=== PATIENT | female | born 1980 | race Caucasian/White ===

== ENCOUNTER → 2016-05-21 | Outpatient (CLI) | payer BC ==
--- NOTE | 2016-05-21 15:13 | REP ---
REASON: Low back pain. PRIORS: None. FINDINGS: Five views of the lumbosacral spine show no acute fracture, dislocation or subluxation. The intervertebral disc spaces are symmetric and well maintained. There is no spondylolisthesis. The pedicles are intact bilaterally and there is no destructive osseous lesions. IMPRESSION: Unremarkable lumbosacral spine series. Signed by Ronnie De Leon DO 05/21/2016 03:18 P
== END ==
LOC: M WUC 09:29
PROVIDERS: ATTEND Physician Assistant
DX: M54.5 Low back pain (principal)

== ENCOUNTER → 2018-02-05 | Outpatient (CLI) | payer BC ==
[2018-02-05 19:34] LABS: BASO # 0.1 10^3/uL (0.0-0.2); BASO % 0.6 % (0.0-1.0); EOS # 0.1 10^3/uL (0.0-0.50); EOS % 1.5 % (0.0-3.0); HEMATOCRIT 38.5 % (36.0-47.0); HEMOGLOBIN 13.5 g/dl (12.0-15.5); IMMATURE GRANULOCYTE % 0.1 % (0-3.0); LYMPH # 2.4 10^3/uL (1.5-4.5); LYMPH % 30.3 % (24.0-44.0); MEAN CORPUSCULAR HEMOGLOBIN 29.7 pg (27.0-33.0); MEAN CORPUSCULAR HGB CONC 35.1 g/dl (32.0-36.5); MEAN CORPUSCULAR VOLUME 84.8 fl (80.0-96.0); MONO # 0.5 10^3/uL (0.0-0.8); MONO % 6.7 % (0.0-5.0); NEUTROPHILS # 4.8 10^3/uL (1.8-7.7); NEUTROPHILS % 60.8 % (36.0-66.0); PLATELET COUNT, AUTOMATED 236 10^3/uL (150-450); RED BLOOD COUNT 4.54 10^6/uL (4.00-5.40); RED CELL DISTRIBUTION WIDTH 12.1 % (11.5-14.5); WHITE BLOOD COUNT 7.9 10^3/uL (4.0-10.0)
[2018-02-05 19:41] LABS: FREE T4 0.86 NG/DL (0.76-1.46)
[2018-02-05 19:44] LABS: PROLACTIN 8.9 NG/ML
== END ==
LOC: M WUC 16:06
DX: N92.0 Excessive and frequent menstruation with regular cycle (principal)
CPT/HCPCS: 84146

== ENCOUNTER 2018-04-25 07:30 | Day surgery (SDC) | payer BC ==
[~2018-04-25] VITALS: Ht 165.1 cm; Wt 91.2 kg
[~2018-04-25 07:30] MED LIST: LR 1,000 ML IV SCH
[2018-04-25 08:05] LABS: URINE PREG TEST NEGATIVE (NEGATIVE)
[2018-04-25] MEDS ORDERED: ONDANSETRON 4MG/2ML VIAL (J2405) As Ordered ONE ×2 (09:07→12:54)
[2018-04-25] MEDS ORDERED: KETOROLAC 60 MG/2 ML VIAL (J1885) As Ordered ONE (09:07)
[2018-04-25] MEDS ORDERED: MIDAZOLAM INJ 2 MG/2 ML VIAL (J2250) As Ordered ONE (09:07)
[2018-04-25] MEDS ORDERED: ROCURONIUM BROMIDE 50 MG/5 ML VIAL As Ordered ONE (09:07)
[2018-04-25] MEDS ORDERED: PROPOFOL 200 MG/20 ML VIAL As Ordered ONE (09:07)
[2018-04-25] MEDS ORDERED: fentaNYL 100 MCG/2 ML INJECTION (J3010) As Ordered ONE ×2 (09:07→10:10)
[2018-04-25] MEDS ORDERED: LIDOCAINE 2% INJ 100 MG/5 ML SDV (FOR ANES.) As Ordered ONE (09:07)
[2018-04-25] MEDS ORDERED: dexameTHASONE 4 MG/ML 1ML VIAL (J1100) As Ordered ONE (09:07)
[2018-04-25] MEDS ORDERED: SUGAMMADEX SODIUM 500 MG/5 ML VIAL (BRIDION) As Ordered ONE (09:15)
[2018-04-25] MEDS ORDERED: HYDROmorphone HCL 2 MG/ML 1ML VIAL (J1170) As Ordered ONE (09:18)
[2018-04-25] MEDS: fentaNYL 100 MCG/2 ML INJECTION (J3010) IV PRN ×4 (10:11→10:29)
[2018-04-25] MEDS ORDERED: PERCOCET 5MG/325MG TAB PO PRN (10:15)
[2018-04-25] MEDS ORDERED: IBUPROFEN 600 MG TAB PO PRN (10:15)
[2018-04-25] MEDS ORDERED: NORCO, ANEXSIA 5/325MG TABLET (HYDROcodone/ACETAMINOPHEN) PO PRN (10:15)
[2018-04-25] MEDS ORDERED: LR 1,000 ML IV SCH ×2 (10:15)
[2018-04-25] MEDS ORDERED: ONDANSETRON 4MG/2ML VIAL (J2405) IV PRN (10:15)
[2018-04-25 13:12] VITALS: BP 138/71
--- NOTE | 2018-04-27 12:10 | RO ---
DATE OF PROCEDURE: 04/25/2018 PREOPERATIVE DIAGNOSES/INDICATION FOR SURGERY: Pain, bleeding, desire for tubal ligation. POSTOPERATIVE DIAGNOSES: Pain, bleeding, desire for tubal ligation. Extensive peritoneal adhesions, likely but not definitively a result of her section. PROCEDURE: Laparoscopic bilateral tubal ligation with dilatation and curettage, hysteroscopy NovaSure endometrial ablation. SURGEON: Kinga Zamora MD RESIDENTIAL ROOFER: ANESTHESIA: General endotracheal anesthesia. BRIEF DESCRIPTION OF PROCEDURE AND FINDINGS: Linda was brought to the operating room where sufficient general endotracheal anesthesia was induced and she was prepped, draped and positioned in the usual sterile fashion, the bladder emptied and the anterior aspect of the cervix grasped with a single tooth tenaculum. The uterus was sounded to 9 with an endocervical length of 4 giving a cavity length of 5, which was used later in the case. At this point, we only had length. Width was eventually measured at 3.5, but at this point we just again had length of 5. Went ahead and placed the uterine manipulator and then turned our attention to the abdomen. A transverse semilunar incision was made at the base of the umbilicus, sharp and blunt dissection were continued through the subcutaneous tissues to the level of the rectus fascia, which was grasped with Marii clamps, elevated, transversely incised under direct visualization, secured with #0 Vicryl retention sutures and then the peritoneum entered under direct visualization and the Dara cannula placed in an open laparoscopic technique. It was secured in place with #0 Vicryl retention sutures and CO2 insufflation then begun. After adequate CO2 insufflation, the peritoneal cavity was visualized. There were normal shiny peritoneal surfaces throughout without excrescence, ascites nor exudate, but there were extensive non-distorting peritoneal adhesions of the pelvis, and some adhesions of the uterus to the anterior abdominal wall, some of which would somewhat limit the space of the bladder. They did not move the uterus out of its normal location, but given that the bladder would be inferior to some of these adhesions, there may be some limitation to its ability to fill and the intestines were also somewhat adherent and the fallopian tubes somewhat adherent to the utero-ovarian suspensory ligaments. Pictures were taken do document all of these findings. We did not find any significant lesions. Tubes were not distorted by those minor adhesions and we were readily able to see the fimbriated ends. We then used the bipolar cautery to cauterize each tube in four separate locations with complete cauterization with each effort and pictures were taken to document this progress as well. There were some minor adhesions of the intestines along both left and right side, but again they were not really kinking or distorting the intestine, particularly especially since she was in relatively steep Trendelenburg and even with that there were no many spots where the intestines were really kinked, so we did not do a lot of incising of these because we did not know if we cut them whether they would heal in a better or worse state, so they were left in place. The upper abdomen is normal in appearance and this portion of the procedure was then ended with the CO2 allowed to escape the abdomen, the instruments removed, the umbilical wound closed at the fascial level with the #0 Vicryl retention suture and the skin closed with #3-0 Vicryl in a subcuticular stitch and dry sterile dressing then applied. Attention was then turned to the pelvic. With the uterine manipulator removed, the hysteroscope was placed. We initially had some air bubbles in the cavity and some posterior changes consistent with placement of the uterine manipulator, but there were other no significant findings within the endometrium. Tubal ostia were normal in appearance. The shape of the cavity was normal. The curettage was carried out and then the NovaSure ablative device was placed, and again length was measured at 5 already, width was measured at this point at 3.5 and an uncomplicated NovaSure ablation was then carried out, and the procedure then ended. ESTIMATED BLOOD LOSS FOR PROCEDURE: About 3 mL. FLUID REPLACEMENT: Crystalloid. COMPLICATIONS: None. CONDITION AND DISPOSITION: Linda tolerated the procedure well and was recovering in the recovery room in good condition.
== END 2018-04-25 13:12 | disposition home or self-care (01) ==
LOC: M SDC 07:30
PROVIDERS: ATTEND Obstetrics & Gynecology
DX: R10.2 Pelvic and perineal pain (principal); Z30.2 Encounter for sterilization; N93.9 Abnormal uterine and vaginal bleeding, unspecified; N73.6 Female pelvic peritoneal adhesions (postinfective)
CPT/HCPCS: 58356; 58670; 84703; 88305; J1100; J1170; J1885; J2250; J2405; J3010

== ENCOUNTER 2018-07-01 21:47 | Emergency (ER) | payer BC ==
[~2018-07-01] VITALS: Ht 165.1 cm; Wt 86.4 kg
[2018-07-01 23:05] LABS: BASO % 0.3 % (0.0-1.0); EOS # 0.2 10^3/uL (0.0-0.50); EOS % 1.7 % (0.0-3.0); HEMATOCRIT 40.3 % (36.0-47.0); HEMOGLOBIN 14.2 g/dl (12.0-15.5); LYMPH # 2.5 10^3/uL (1.5-4.5); LYMPH % 28.3 % (24.0-44.0); MEAN CORPUSCULAR HEMOGLOBIN 29.9 pg (27.0-33.0); MEAN CORPUSCULAR HGB CONC 35.2 g/dl (32.0-36.5); MEAN CORPUSCULAR VOLUME 84.8 fl (80.0-96.0); MONO # 0.8 10^3/uL (0.0-0.8); MONO % 9.3 % (0.0-5.0); NEUTROPHILS # 5.2 10^3/uL (1.8-7.7); NEUTROPHILS % 60.2 % (36.0-66.0); PLATELET COUNT, AUTOMATED 232 10^3/uL (150-450); RED BLOOD COUNT 4.75 10^6/uL (4.00-5.40); WHITE BLOOD COUNT 8.7 10^3/uL (4.0-10.0)
[2018-07-01 23:23] LABS: BLOOD UREA NITROGEN 15 MG/DL (7-18); CALCIUM LEVEL 9.3 MG/DL (8.5-10.1); CARBON DIOXIDE LEVEL 27 MEQ/L (21-32); CHLORIDE LEVEL 109 MEQ/L (98-107); GLOMERULAR FILTRATION RATE > 60.0 (>60); GLUCOSE, FASTING 79 MG/DL (70-100); SODIUM LEVEL 141 MEQ/L (136-145)
[2018-07-01 23:25] LABS: HCG, SERUM QUALITATIVE NEGATIVE (NEGATIVE)
[2018-07-02] MEDS ORDERED: KETOROLAC 60 MG/2 ML VIAL (J1885) IM ONE (00:15)
--- NOTE | 2018-07-02 01:32 | REPVR ---
EXAM: US Pelvis Complete, Transabdominal EXAM DATE/TIME: 07/02/2018 12:34 AM CLINICAL HISTORY: 37 years old, female; Pelvic pain; Prior surgery; Surgery date: 1-6 months; Surgery type: Ablation and tubal; Additional info: Pelvic pain, R/O ov cyst/ torsion TECHNIQUE: Imaging protocol: Real-time transabdominal pelvic ultrasound with image documentation. Complete exam. COMPARISON: No relevant prior studies available. FINDINGS: Uterus/cervix: Uterus measures 8.9 x 4.0 x 5.2 cm. Endometrial thickness is measuring 4.6 mm. Right adnexa: Right ovary measures 3.9 x 1.8 x 2.8 cm. Normal vascular flow is seen. No evidence of cyst or mass. Left adnexa: Left ovary measures 3.6 x 2.4 x 2.4 cm. Normal vascular flow is seen. No evidence of cyst or mass. Free fluid: None. Bladder: Urinary bladder is unremarkable measuring 4.9 x 3.0 x 5.2 cm. IMPRESSION: Negative exam. Electronically signed by: Rubi Maradiaga On 07/02/2018 01:31:49 AM
[2018-07-02] MEDS ORDERED: FLAG500T PO (01:51)
[2018-07-02 02:04] VITALS: BP 130/62
[2018-07-02] MEDS ORDERED: MACR100C43 PO (02:10)
[2018-07-02] MEDS ORDERED: metroNIDAZOLE (FLAGYL) 500 MG TAB PO ONE (02:15)
[2018-07-02 03:16] LABS: CHLAMYDIA DNA AMPLIFICATION NEGATIVE (NEGATIVE); GC DNA AMPLIFICATION NEGATIVE (NEGATIVE)
== END 2018-07-02 02:20 | disposition home or self-care (01) ==
LOC: M ED 21:47
DX: N76.0 Acute vaginitis (principal); Z87.440 Personal history of urinary (tract) infections
CPT/HCPCS: 36415; 76856; 80048; 81001; 84703; 85025; 86850; 86900; 86901; 87086; 87210; 87491; 87591; 93976; 96372; 99284; J1885